=== PATIENT | female | born 1985 | race Caucasian/White ===

== ENCOUNTER 2017-10-25 20:30 | Emergency (ER) | payer SELFPAY ==
[2017-10-25 21:24] VITALS: BP 126/87
[2017-10-25] MEDS ORDERED: ASPIRIN PO ONE (22:06)
[2017-10-25] MEDS ORDERED: TYLENOL PO ONE (22:07)
[2017-10-25 22:27] LABS: Hematocrit 43.6 % (30.3-42.9); Hemoglobin 14.5 gm/dl (10.1-14.3); Mean Corpuscular HGB Conc 33 % (30-34); Mean Corpuscular Hemoglobin 32 pg (28-32); Mean Corpuscular Volume 95 fl (79-97); Platelet Count 305 K/mm3 (140-440); Red Blood Count 4.59 M/mm3 (3.65-5.03); Red Cell Distribution Width 13.2 % (13.2-15.2)
[2017-10-25 22:31] LABS: BUN/Creatinine Ratio 20; Blood Urea Nitrogen 10 mg/dL (7-17); Calcium 8.9 mg/dL (8.4-10.2); Hemolysis Index 11
[2017-10-25 23:26] LABS: Macrocytosis 1+; Total Cells Counted 100
[2017-10-25 23:40] LABS: Bilirubin,Urine NEG (Negative); Blood,Urine NEG (Negative); Color,Urine Yellow (Yellow); Mucus,Urine FEW /HPF; Protein,Urine <15 mg/dL mg/dL (Negative)
== END 2017-10-25 22:15 | disposition left against medical advice (07) ==
LOC: ED 20:30
DX: R06.00 Dyspnea, unspecified (principal); Z53.21 Procedure and treatment not carried out due to patient leaving prior to being seen by health care provider
CPT/HCPCS: 36415; 80048; 81001; 84484; 84703; 85007; 85025; 93005; 93010

== ENCOUNTER 2019-09-09 14:01 | Observation (INO) | payer SELFPAY ==
--- NOTE | 2019-09-09 14:21 | Event Note ---
ED Screening Note Date of service: 09/09/19 Time: 14:20 ED Screening Note: 33 yo female presents cc of sob/ headache/ heart racing x saturday pt fell 2 weeks ago down 8 steps, last saturday she was experincing pelv pain with heavy vaginal bleeding states took preg text x 1month and was positive on 08/13/2019 cc of head spinning and sob pmh of anemia LMP:06/28/19 This initial assessment/diagnostic orders/clinical plan/treatment(s) is/are subject to change based on patients health status, clinical progression and re- assessment by fellow clinical providers in the ED. Further treatment and workup at subsequent clinical providers discretion. Patient/guardian urged not to elope from the ED as their condition may be serious if not clinically assessed and managed. Initial orders include: labs, ua main ed eval
[2019-09-09 15:00] LABS: Basophils % (Auto) 0.2 % (0.0-1.8); Eosinophils # (Auto) 0.6 K/mm3 (0.0-0.4); Eosinophils % (Auto) 3.5 % (0.0-4.3); Lymphocytes # (Auto) 3.9 K/mm3 (1.2-5.4); Lymphocytes % (Auto) 24.9 % (13.4-35.0); Mean Corpuscular HGB Conc 32 % (30-34); Mean Corpuscular Volume 90 fl (79-97); Monocytes % (Auto) 6.2 % (0.0-7.3); Platelet Count 348 K/mm3 (140-440); Red Cell Distribution Width 13.4 % (13.2-15.2)
[2019-09-09 15:03] LABS: Hematocrit 12.5 % (30.3-42.9)
[2019-09-09 15:26] LABS: Alanine Aminotransferase 9 units/L (7-56); Albumin 3.5 g/dL (3.9-5); BUN/Creatinine Ratio 8; Blood Urea Nitrogen 4 mg/dL (7-17); Calcium 8.5 mg/dL (8.4-10.2); Hemolysis Index 1
[2019-09-09 16:05] LABS: Partial Thromboplastin Time 27.1 Sec. (24.2-36.6)
--- NOTE | 2019-09-09 16:39 | Emergency Department Report ---
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 Fontana)) Mode of arrival: Ambulatory Limitations: No Limitations - History of Present Illness Initial comments: The patient presents to the emergency department with a chief complaint of dizziness and mild headache. Patient states 2 weeks ago she fell while cooking at home and has since had vaginal bleeding. Patient states the vaginal bleeding became worse yesterday. Patient states she is early on in her current and is a . Patient does complain of some abdominal cramping as well. Patient denies hitting her head or have a loss of consciousness after the fall. The patient states she does not have a current FREIGHT AGENT. -: Sudden Location: abdomen Radiation: non-radiation Severity scale (0 -10): 2 Quality: other (Cramping) Consistency: constant Improves with: none Worsens with: none Associated Symptoms: denies other symptoms Treatments Prior to Arrival: none - Related Data Home Medications Medication Instructions Recorded Confirmed Last Taken No Known Home Medications [No 05/19/16 05/19/16 Unknown Reported Home Medications] Allergies Allergy/AdvReac Type Severity Reaction Status Date / Time No Known Allergies Allergy Verified 10/14/14 02:02 ED Review of Systems ROS: Stated complaint: DIFFICULTY BREATHING Other details as noted in HPI Comment: All other systems reviewed and negative Constitutional: denies: chills, fever Eyes: denies: eye pain, eye discharge, vision change ENT: denies: ear pain, throat pain Respiratory: denies: cough, shortness of breath, wheezing Cardiovascular: denies: chest pain, palpitations Endocrine: no symptoms reported Gastrointestinal: denies: abdominal pain, nausea, diarrhea Genitourinary: denies: urgency, dysuria, discharge Musculoskeletal: denies: back pain, joint swelling, arthralgia Skin: denies: rash, lesions Neurological: denies: headache, weakness, paresthesias Psychiatric: denies: anxiety, depression Hematological/Lymphatic: denies: easy bleeding, easy bruising ED Past Medical Hx - Past Medical History Previous Medical History?: No Hx Hypertension: No Hx Congestive Heart Failure: No Hx Diabetes: No Hx Deep Vein Thrombosis: No Hx Renal Disease: No Hx Sickle Cell Disease: No Hx Seizures: No Hx Asthma: No Hx COPD: No Hx HIV: No - Surgical History Past Surgical History?: No - Social History Smoking Status: Never Smoker Substance Use Type: None - Medications Home Medications: Home Medications Medication Instructions Recorded Confirmed Last Taken Type No Known Home Medications [No 05/19/16 05/19/16 Unknown History Reported Home Medications] ED Physical Exam - General Limitations: No Limitations General appearance: alert, in no apparent distress, other (Patient is pale on exam) - Head Head exam: Present: atraumatic, normocephalic - Eye Eye exam: Present: normal appearance, PERRL, EOMI - ENT ENT exam: Present: mucous membranes moist - Neck Neck exam: Present: normal inspection - Respiratory Respiratory exam: Present: normal lung sounds bilaterally. Absent: respiratory distress - Cardiovascular Cardiovascular Exam: Present: normal rhythm, tachycardia. Absent: systolic murmur, diastolic murmur, rubs, gallop - GI/Abdominal GI/Abdominal exam: Present: soft, normal bowel sounds. Absent: distended, tenderness - External exam: Present: normal external exam Speculum exam: Present: vaginal bleeding, other (There appears to be tissue in the vault) - Extremities Exam Extremities exam: Present: normal inspection - Back Exam Back exam: Present: normal inspection - Neurological Exam Neurological exam: Present: alert, oriented X3, CN II-XII intact. Absent: motor sensory deficit - Psychiatric Psychiatric exam: Present: normal affect, normal mood - Skin Skin exam: Present: warm, dry, intact, normal color. Absent: rash ED Course Vital Signs 09/09/19 09/09/19 09/09/19 14:07 14:26 15:12 Temperature 98.1 F 98 F Pulse Rate 125 H 137 H 110 H Respiratory 18 30 H 17 Rate Blood Pressure 122/90 122/90 O2 Sat by Pulse 100 100 Oximetry 09/09/19 09/09/19 09/09/19 15:21 15:30 15:45 Temperature Pulse Rate 116 H 113 H 103 H Respiratory 14 16 24 Rate Blood Pressure 112/71 105/66 O2 Sat by Pulse 100 100 100 Oximetry 09/09/19 09/09/19 09/09/19 16:00 16:15 16:30 Temperature Pulse Rate 114 H 99 H 126 H Respiratory 15 22 19 Rate Blood Pressure 113/76 104/61 103/64 O2 Sat by Pulse 100 100 100 Oximetry 09/09/19 09/09/19 09/09/19 16:36 17:30 17:45 Temperature Pulse Rate 91 H Respiratory 18 19 Rate Blood Pressure 102/54 94/53 O2 Sat by Pulse 100 Oximetry 09/09/19 09/09/19 09/09/19 18:00 18:15 18:30 Temperature Pulse Rate 89 90 92 H Respiratory 20 19 18 Rate Blood Pressure 97/57 93/55 98/58 O2 Sat by Pulse Oximetry 09/09/19 09/09/19 09/09/19 18:45 18:48 19:00 Temperature 98.3 F Pulse Rate 93 H 95 H 91 H Respiratory 14 17 19 Rate Blood Pressure 96/56 100/61 97/53 O2 Sat by Pulse 100 100 100 Oximetry 09/09/19 19:03 Temperature 99.2 F Pulse Rate 86 Respiratory 17 Rate Blood Pressure 97/53 O2 Sat by Pulse 100 Oximetry ED Medical Decision Making - Lab Data Result diagrams: 09/09/19 14:43 09/09/19 14:43 Lab Results 09/09/19 09/09/19 09/09/19 Range/Units 14:43 14:43 14:43 WBC 15.7 H (4.5-11.0) K/mm3 RBC 1.40 L (3.65-5.03) M/mm3 Hgb 4.0 L* (10.1-14.3) gm/dl Hct 12.5 L* (30.3-42.9) % MCV 90 (79-97) fl MCH 29 (28-32) pg MCHC 32 (30-34) % RDW 13.4 (13.2-15.2) % Plt Count 348 (140-440) K/mm3 Lymph % (Auto) 24.9 (13.4-35.0) % [place] % (Auto) 6.2 (0.0-7.3) % Eos % (Auto) 3.5 (0.0-4.3) % Baso % (Auto) 0.2 (0.0-1.8) % Lymph # 3.9 (1.2-5.4) K/mm3 [place] # 1.0 H (0.0-0.8) K/mm3 Eos # 0.6 H (0.0-0.4) K/mm3 Baso # 0.0 (0.0-0.1) K/mm3 Seg Neutrophils % 65.2 (40.0-70.0) % Seg Neutrophils # 10.2 H (1.8-7.7) K/mm3 PT (12.2-14.9) Sec. INR (0.87-1.13) APTT (24.2-36.6) Sec. Sodium 139 (137-145) mmol/L Potassium 3.9 (3.6-5.0) mmol/L Chloride 104.4 (98-107) mmol/L Carbon Dioxide 20 L (22-30) mmol/L Anion Gap 19 mmol/L BUN 4 L (7-17) mg/dL Creatinine 0.5 L (0.7-1.2) mg/dL Estimated GFR > 60 ml/min BUN/Creatinine Ratio 8 % Glucose 108 H (65-100) mg/dL Calcium 8.5 (8.4-10.2) mg/dL Total Bilirubin < 0.20 (0.1-1.2) mg/dL AST 14 (5-40) units/L ALT 9 (7-56) units/L Alkaline Phosphatase 53 (35-129) units/L Troponin T (0.00-0.029) ng/mL Total Protein 6.3 (6.3-8.2) g/dL Albumin 3.5 L (3.9-5) g/dL Albumin/Globulin Ratio 1.3 % HCG, Quant 650.5 H (0-4) mIU/mL Blood Type Antibody Screen Crossmatch 09/09/19 09/09/19 09/09/19 Range/Units 15:30 15:32 15:55 WBC (4.5-11.0) K/mm3 RBC (3.65-5.03) M/mm3 Hgb (10.1-14.3) gm/dl Hct (30.3-42.9) % MCV (79-97) fl MCH (28-32) pg MCHC (30-34) % RDW (13.2-15.2) % Plt Count (140-440) K/mm3 Lymph % (Auto) (13.4-35.0) % [place] % (Auto) (0.0-7.3) % Eos % (Auto) (0.0-4.3) % Baso % (Auto) (0.0-1.8) % Lymph # (1.2-5.4) K/mm3 [place] # (0.0-0.8) K/mm3 Eos # (0.0-0.4) K/mm3 Baso # (0.0-0.1) K/mm3 Seg Neutrophils % (40.0-70.0) % Seg Neutrophils # (1.8-7.7) K/mm3 PT 13.3 (12.2-14.9) Sec. INR 1.00 (0.87-1.13) APTT 27.1 (24.2-36.6) Sec. Sodium (137-145) mmol/L Potassium (3.6-5.0) mmol/L Chloride (98-107) mmol/L Carbon Dioxide (22-30) mmol/L Anion Gap mmol/L BUN (7-17) mg/dL Creatinine (0.7-1.2) mg/dL Estimated GFR ml/min BUN/Creatinine Ratio % Glucose (65-100) mg/dL Calcium (8.4-10.2) mg/dL Total Bilirubin (0.1-1.2) mg/dL AST (5-40) units/L ALT (7-56) units/L Alkaline Phosphatase (35-129) units/L Troponin T (0.00-0.029) ng/mL Total Protein (6.3-8.2) g/dL Albumin (3.9-5) g/dL Albumin/Globulin Ratio % HCG, Quant 600.5 H (0-4) mIU/mL Blood Type A POSITIVE Antibody Screen Negative Crossmatch See Detail 09/09/19 09/09/19 Range/Units 15:55 Unknown WBC (4.5-11.0) K/mm3 RBC (3.65-5.03) M/mm3 Hgb (10.1-14.3) gm/dl Hct (30.3-42.9) % MCV (79-97) fl MCH (28-32) pg MCHC (30-34) % RDW (13.2-15.2) % Plt Count (140-440) K/mm3 Lymph % (Auto) (13.4-35.0) % [place] % (Auto) (0.0-7.3) % Eos % (Auto) (0.0-4.3) % Baso % (Auto) (0.0-1.8) % Lymph # (1.2-5.4) K/mm3 [place] # (0.0-0.8) K/mm3 Eos # (0.0-0.4) K/mm3 Baso # (0.0-0.1) K/mm3 Seg Neutrophils % (40.0-70.0) % Seg Neutrophils # (1.8-7.7) K/mm3 PT (12.2-14.9) Sec. INR (0.87-1.13) APTT (24.2-36.6) Sec. Sodium (137-145) mmol/L Potassium (3.6-5.0) mmol/L Chloride (98-107) mmol/L Carbon Dioxide (22-30) mmol/L Anion Gap mmol/L BUN (7-17) mg/dL Creatinine (0.7-1.2) mg/dL Estimated GFR ml/min BUN/Creatinine Ratio % Glucose (65-100) mg/dL Calcium (8.4-10.2) mg/dL Total Bilirubin (0.1-1.2) mg/dL AST (5-40) units/L ALT (7-56) units/L Alkaline Phosphatase (35-129) units/L Troponin T < 0.010 (0.00-0.029) ng/mL Total Protein (6.3-8.2) g/dL Albumin (3.9-5) g/dL Albumin/Globulin Ratio % HCG, Quant (0-4) mIU/mL Blood Type A POSITIVE Antibody Screen Crossmatch - Radiology Data Radiology results: report reviewed - Medical Decision Making 3 units of packed RBCs ordered Patient transfusion initiated in the ED Critical Care Time: Yes Critical care time in (mins) excluding proc time.: 35 Critical care attestation.: If time is entered above; I have spent that time in minutes in the direct care of this critically ill patient, excluding procedure time. ED Disposition Clinical Impression: Anemia requiring transfusions, Miscarriage, Vaginal bleeding Disposition: OP ADMIT IP TO THIS HOSP Is pt being admited?: Yes Does the pt Need Aspirin: No Condition: Fair Referrals: MARICARMEN KEARNEY MD [Primary Care Provider] - 3-5 Days
[2019-09-09] MEDS ORDERED: ONDANSETRON 4 MG/2 ML INJ IV ONE (16:43)
[2019-09-09] MEDS ORDERED: MORPHINE 4 MG/1 ML INJ IV ONE (16:43)
[2019-09-09] MEDS ORDERED: SODIUM CHLORIDE 0.9% 500 ML 500 ML IV ONE (17:30)
[2019-09-09] MEDS ORDERED: SODIUM CHLORIDE 0.9% 1000 ML 1,000 ML ONE (17:33)
[2019-09-09] MEDS ORDERED: SODIUM CHLORIDE 0.9% 1000 ML 1,000 ML IV ONE (17:39)
--- NOTE | 2019-09-09 17:49 | Ultrasound Report ---
ULTRASOUND OBSTETRIC INDICATION / CLINICAL INFORMATION: vaginal bleeding. Clinical Gestational Age (GA): 14.6 weeks.days TECHNIQUE: Transabdominal and Transvaginal. COMPARISON: None available. FINDINGS: GESTATIONAL SAC: No intrauterine gestational sac. YOLK SAC: Not seen. EMBRYO/FETUS: Not seen. ADNEXA: No significant abnormality. FREE FLUID: None. ADDITIONAL FINDINGS: Soft tissue density in the distal endometrial canal near the cervix could repres ent blood clot. IMPRESSION: 1. No intrauterine identified. 2. Soft tissue density in the distal endometrial canal possibly representing blood clot. Clinical and sonographic follow-up is recommended. Signer Name: Soy Paula MD Signed: 09/09/2019 5:44 PM Workstation Name: [id number]
[2019-09-09] MEDS ORDERED: METHYLERGONOVINE MALEATE 0.2 MG/ML VIAL IM ONE (21:58)
--- NOTE | 2019-09-09 22:00 | History and Physical Report ---
History of Present Illness Date of examination: 09/09/19 Date of admission: 09/09/19 19:23 Chief complaint: dizziness, vaginal bleeding History of present illness: 33yo with incomplete and symptomatic anemia. Hb in ED 4.0 US showed no IUP, +ve ~1.0cm blood clot in lower uterine segment BHCG 600 Past History Past Medical History: no pertinent history Past Surgical History: no surgical history Family/Genetic History: none Social history: no significant social history - Obstetrical History : 9 Medications and Allergies Allergies Allergy/AdvReac Type Severity Reaction Status Date / Time No Known Allergies Allergy Verified 10/14/14 02:02 Home Medications Medication Instructions Recorded Confirmed Last Taken Type No Known Home Medications [No 05/19/16 05/19/16 Unknown History Reported Home Medications] Active Meds: Active Medications Methylergonovine Maleate (Methergine) 0.2 mg IM ONCE ONE Stop: 09/09/19 21:59 Review of Systems All systems: negative (vaginal bleeding) - Vital Signs Vital signs: Vital Signs Temp Pulse Resp BP Pulse Ox 98.1 F 125 H 18 122/90 100 09/09/19 14:07 09/09/19 14:07 09/09/19 14:07 09/09/19 14:07 09/09/19 14:07 Temp Pulse Resp BP Pulse Ox 98.5 F 87 19 100/58 100 09/09/19 21:00 09/09/19 21:00 09/09/19 21:00 09/09/19 21:00 09/09/19 21:00 - Physical Exam Breasts: Positive: deferred Cardiovascular: Regular rate Lungs: Positive: Clear to auscultation Abdomen: Positive: normal appearance, normal bowel sounds Genitourinary (Female): Positive: normal external genitalia Anus/Rectum: Positive: normal perianal skin Extremities: Positive: tenderness Deep Tendon Reflex Grade: Normal +2 Results Result Diagrams: 09/09/19 14:43 09/09/19 14:43 Abnormal lab results 09/09/19 09/09/19 09/09/19 Range/Units 14:43 14:43 14:43 WBC 15.7 H (4.5-11.0) K/mm3 RBC 1.40 L (3.65-5.03) M/mm3 Hgb 4.0 L* (10.1-14.3) gm/dl Hct 12.5 L* (30.3-42.9) % [place] # 1.0 H (0.0-0.8) K/mm3 Eos # 0.6 H (0.0-0.4) K/mm3 Seg Neutrophils # 10.2 H (1.8-7.7) K/mm3 Carbon Dioxide 20 L (22-30) mmol/L BUN 4 L (7-17) mg/dL Creatinine 0.5 L (0.7-1.2) mg/dL Glucose 108 H (65-100) mg/dL Albumin 3.5 L (3.9-5) g/dL HCG, Quant 650.5 H (0-4) mIU/mL Crossmatch 09/09/19 09/09/19 Range/Units 15:30 15:55 WBC (4.5-11.0) K/mm3 RBC (3.65-5.03) M/mm3 Hgb (10.1-14.3) gm/dl Hct (30.3-42.9) % [place] # (0.0-0.8) K/mm3 Eos # (0.0-0.4) K/mm3 Seg Neutrophils # (1.8-7.7) K/mm3 Carbon Dioxide (22-30) mmol/L BUN (7-17) mg/dL Creatinine (0.7-1.2) mg/dL Glucose (65-100) mg/dL Albumin (3.9-5) g/dL HCG, Quant 600.5 H (0-4) mIU/mL Crossmatch See Detail All other labs normal. Ultrasound: report reviewed Assessment and Plan incomplete symptomatic anemia plan: transfuse four units pRBCs cbc in AM Metherginex1 dose and cytotec regular diet monitor blood loss and vitals Taryn LOWE
[2019-09-09] MEDS ORDERED: ONDANSETRON 4 MG/2 ML INJ IV PRN (22:22)
[2019-09-09] MEDS ORDERED: diphenhydrAMINE 25 MG CAP PO PRN (22:22)
[2019-09-09] MEDS ORDERED: HYDROcodone/ACETAMINOPHEN 5-325 MG TAB PO PRN (22:22)
[2019-09-09] MEDS ORDERED: PROMETHAZINE 25 MG TAB PO PRN (22:22)
[2019-09-09] MEDS ORDERED: IBUPROFEN 600 MG TAB PO SCH (22:22)
[2019-09-09] MEDS ORDERED: miSOPROStol 100 MCG TAB PO ONE (22:22)
[2019-09-09] MEDS ORDERED: ACETAMINOPHEN 325 MG TAB PO PRN (22:22)
[2019-09-09] MEDS ORDERED: PROMETHAZINE 25 MG RECT SUPP PR PRN (22:22)
[2019-09-10 07:23] LABS: Hemoglobin 6.3 gm/dl (10.1-14.3)
[2019-09-10 07:46] LABS: Hematocrit 18.2 % (30.3-42.9)
[2019-09-10 08:53] VITALS: BP 101/53
== END 2019-09-10 10:00 | disposition home or self-care (01) ==
LOC: ED 14:01 → OB 19:23
PROVIDERS: ADMIT Obstetrics & Gynecology; ATTEND Obstetrics & Gynecology
DX: O03.4 Incomplete spontaneous abortion without complication (principal); D64.9 Anemia, unspecified
CPT/HCPCS: 36415; 76801; 76817; 80053; 84484; 84702; 85014; 85018; 85025; 85610; 85730; 86850; 86900; 86901; 86920; 93005; 93010; 96361; 96374; 96375; 99291; G0378; J2270; J2405; J7030; J7040; P9016; 76830